=== PATIENT | male | born 1985 | race African-American/Black ===

== ENCOUNTER 2017-06-18 04:40 | Emergency (ER) | payer SELFPAY ==
[~2017-06-18] VITALS: Ht 205.7 cm; Wt 75.0 kg
[~2017-06-18 04:40] MED LIST: LORTA5 PO
[2017-06-18 04:43] VITALS: BP 130/69; PULSE 111; RESP 16; TEMP 98.9; O2SAT 95
== END 2017-06-18 04:56 | disposition left against medical advice (07) ==
LOC: NETRI 04:40
DX: M79.643 Pain in unspecified hand (principal)
CPT/HCPCS: 99281